=== PATIENT | male | born 1995 | race Caucasian/White ===

== ENCOUNTER 2018-07-05 08:29 | Emergency (ER) | payer OTHER, MEDICAID ==
[~2018-07-05] VITALS: Ht 177.8 cm; Wt 99.8 kg
[~2018-07-05 08:29] MED LIST: AMBIEN 5 MG TABL5 M1 PO; CLONAZEPAM 1 MG1 M1 PO; SEROQUEL 50 MG50 MG PO
[2018-07-05] MEDS ORDERED: EPIPEN 2-P0.3 MG/0.3 IM (08:41)
[2018-07-05] MEDS ORDERED: DIPHENHIST50 MG PO (08:41)
[2018-07-05] MEDS ORDERED: PREDNISONE50 MG PO (08:41)
[2018-07-05 10:42] VITALS: BP 144/87
== END 2018-07-05 10:43 | disposition home or self-care (01) ==
LOC: M.ERS 08:29
DX: T78.49XA Other allergy, initial encounter (principal); Z88.2 Allergy status to sulfonamides; Z88.7 Allergy status to serum and vaccine; X58.XXXA Exposure to other specified factors, initial encounter

== ENCOUNTER 2018-12-05 16:00 | Emergency (ER) | payer OTHER, MEDICAID ==
[~2018-12-05] VITALS: Ht 188 cm; Wt 149.7 kg
[~2018-12-05 16:00] MED LIST changes: +DIPHENHIST50 MG PO; +EPIPEN 2-P0.3 MG/0.3 IM; +PREDNISONE50 MG PO
[2018-12-05] MEDS ORDERED: SUBOXONE 2 MG-1 EAC1 PO (16:13)
[2018-12-05 16:40] VITALS: BP 149/97
== END 2018-12-05 16:51 | disposition home or self-care (01) ==
LOC: M.ERS 16:00
DX: S61.411A Laceration without foreign body of right hand, initial encounter (principal); Z88.0 Allergy status to penicillin; Z88.2 Allergy status to sulfonamides; Z88.1 Allergy status to other antibiotic agents; Z88.7 Allergy status to serum and vaccine; X58.XXXA Exposure to other specified factors, initial encounter; Y93.89 Activity, other specified; Y92.89 Other specified places as the place of occurrence of the external cause; Y99.8 Other external cause status

== ENCOUNTER 2020-09-03 22:56 | Emergency (ER) | payer OTHER, MEDICAID ==
[~2020-09-03] VITALS: Ht 185.4 cm; Wt 127.0 kg
[~2020-09-03 22:56] MED LIST changes: +ADDERALL 20 MG20 MG PO; +SUBOXONE 2 MG-1 EAC1 PO; +VYVANSE20 MG PO
[2020-09-03 23:06] VITALS: BP 140/89
[2020-09-04] MEDS ORDERED: AZITHROMYCIN 2250 MG PO (00:11)
[2020-09-05] MEDS ORDERED: DOXYCYCLINE 10100 MG PO (03:40)
[2020-09-05] MEDS ORDERED: TRAMADOL 50 MG50 MG PO (03:40)
== END 2020-09-04 00:18 | disposition home or self-care (01) ==
LOC: M.ERS 22:56
DX: L03.114 Cellulitis of left upper limb (principal); Z88.1 Allergy status to other antibiotic agents; Z88.0 Allergy status to penicillin; Z88.7 Allergy status to serum and vaccine; Z88.2 Allergy status to sulfonamides

== ENCOUNTER 2020-09-05 02:49 | Emergency (ER) | payer OTHER, MEDICAID ==
[~2020-09-05] VITALS: Ht 185.4 cm; Wt 127.0 kg
[~2020-09-05 02:49] MED LIST changes: +AZITHROMYCIN 2250 MG PO
[2020-09-05] MEDS ORDERED: TRAMADOL 50 MG50 MG PO (03:40)
[2020-09-05] MEDS ORDERED: DOXYCYCLINE 10100 MG PO (03:40)
[2020-09-05 04:17] VITALS: BP 125/70
== END 2020-09-05 04:18 | disposition home or self-care (01) ==
LOC: M.ERS 02:49
DX: L02.512 Cutaneous abscess of left hand (principal); Z88.1 Allergy status to other antibiotic agents; Z88.0 Allergy status to penicillin; Z88.2 Allergy status to sulfonamides; Z88.7 Allergy status to serum and vaccine

== ENCOUNTER 2021-01-22 00:10 | Emergency (ER) | payer OTHER, MEDICAID ==
[~2021-01-22] VITALS: Ht 185.4 cm; Wt 141.6 kg
[~2021-01-22 00:10] MED LIST changes: +DOXYCYCLINE 10100 MG PO; +TRAMADOL 50 MG50 MG PO
[2021-01-22] MEDS ORDERED: CLONAZEPAM2 MG PO (00:21)
[2021-01-22] MEDS ORDERED: NEURONTIN 300M300 M2 PO (01:11)
[2021-01-22] MEDS ORDERED: MELOXICAM7.5 MG PO (01:11)
[2021-01-22 02:11] VITALS: BP 130/85
== END 2021-01-22 02:11 | disposition home or self-care (01) ==
LOC: M.ERS 00:10
DX: T40.2X1A Poisoning by other opioids, accidental (unintentional), initial encounter (principal); Y92.89 Other specified places as the place of occurrence of the external cause; Z88.1 Allergy status to other antibiotic agents; Z88.2 Allergy status to sulfonamides; Z88.0 Allergy status to penicillin

== ENCOUNTER 2021-02-14 13:33 | Emergency (ER) | payer OTHER, MEDICAID ==
[~2021-02-14] VITALS: Ht 185.4 cm; Wt 122.5 kg
[~2021-02-14 13:33] MED LIST changes: +CLONAZEPAM2 MG PO; +MELOXICAM7.5 MG PO; +NEURONTIN 300M300 M2 PO
[2021-02-14] MEDS ORDERED: CLONAZEPAM 0.50.5 M1 PO (13:55)
[2021-02-14] MEDS ORDERED: NORCO5 PO ×2 (15:01→15:23)
[2021-02-14 15:25] VITALS: BP 151/109
== END 2021-02-14 15:25 | disposition home or self-care (01) ==
LOC: M.ERS 13:33
DX: S69.82XA Other specified injuries of left wrist, hand and finger(s), initial encounter (principal); Z88.1 Allergy status to other antibiotic agents; Z88.0 Allergy status to penicillin; Z88.2 Allergy status to sulfonamides; Z88.7 Allergy status to serum and vaccine; X50.9XXA Other and unspecified overexertion or strenuous movements or postures, initial encounter; Y93.89 Activity, other specified; Y92.89 Other specified places as the place of occurrence of the external cause; Y99.8 Other external cause status

== ENCOUNTER 2021-03-04 07:11 | Emergency (ER) | payer OTHER, MEDICAID ==
[~2021-03-04] VITALS: Ht 185.4 cm; Wt 136.1 kg
[~2021-03-04 07:11] MED LIST changes: +CLONAZEPAM 0.50.5 M1 PO; +NORCO5 PO
[2021-03-04 07:34] LABS: ABSOLUTE EOSINOPHILS 0.1 thou/uL (0.0-0.7); ABSOLUTE MONOCYTES 0.5 thou/uL (0.0-1.2); ABSOLUTE NEUTROPHILS 3.6 thou/uL (1.6-8.1); BASOPHILS 0.4 %; EOSINOPHILS 1.5 %; HEMATOCRIT 43.9 % (42.0-52.0); LYMPHOCYTES 41.4 %; MCH 30.2 pg (26.0-34.0); MCHC 34.1 g/dL (28.0-37.0); MCV 88.7 fL (80.0-100.0); MONOCYTES 7.4 %; MPV 6.8 fl. (7.2-11.1); NUCLEATED RBCS 0 /100WBC; PLATELET COUNT* 236 thou/uL (150-400); POLYS 49.3 %; RBC 4.95 mil/uL (4.50-6.00); RDW-CV 12.8 % (10.5-14.5); WBC 7.3 thou/uL (4.0-11.0)
[2021-03-04 07:44] LABS: CALCIUM 8.6 mg/dL (8.5-10.1); CREATININE 1.2 mg/dL (0.6-1.3); POTASSIUM 3.7 mmol/L (3.5-5.1)
[2021-03-04 07:49] LABS: TOTAL BILIRUBIN 0.5 mg/dL (<0.1-1.0); TOTAL PROTEIN 7.1 g/dL (6.4-8.2)
[2021-03-04 08:06] LABS: URINE BILIRUBIN NEGATIVE (Negative); URINE BLOOD NEGATIVE (Negative); URINE CLARITY CLEAR; URINE COLOR YELLOW; URINE GLUCOSE-RANDOM NEGATIVE (Negative); URINE KETONES NEGATIVE (Negative); URINE LEUKOCYTES-REFLEX NEGATIVE (Negative); URINE NITRITE-REFLEX NEGATIVE (Negative); URINE PROTEIN 1+ (Negative); URINE SPECIFIC GRAVITY >= 1.030 (1.005-1.030); URINE UROBILINOGEN 0.2 E.U./dl (0.2-1.0)
[2021-03-04 08:11] LABS: AMP/METHAMP POSITIVE (Negative); BARBITURATES Negative (Negative); BENZODIAZEPINES Negative (Negative); COCAINE Negative (Negative); METHADONE Negative (Negative); OPIATES Negative (Negative); PCP Negative (Negative); THC POSITIVE (Negative)
[2021-03-04 08:33] LABS: BACTERIA-REFLEX 1-9 Few /HPF (None Seen); CRYSTALS None Seen /LPF (None Seen); HYALINE CASTS 0-3 Few /LPF (None Seen); SQUAMOUS 0-3 Few /LPF (0-3); URINE RBC 0-2 Rare /HPF (0-2); URINE WBC-REFLEX 0-5 Rare /HPF (0-5)
[2021-03-04 11:08] VITALS: BP 131/85
--- NOTE | 2021-03-04 15:03 | EKG ---
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1995 Requested By: Dmitri Hernandez Order Number: [id number] MD: Lio Chappell Measurements Intervals [place] Rate: 105 P: 68 MD: 158 QRS: 56 QRSD: 112 T: 48 QT: 375 QTc: 496 Interpretive Statements Sinus tachycardia Borderline intraventricular conduction delay Prolonged QT interval Baseline wander in lead(s) V2 Compared to ECG 08/03/2020 01:54:51 Prolonged QT interval now present Sinus rhythm no longer present Electronically Signed On 03-04-2021 15:02:58 CDT by Lio Chappell [email or web address] <ELECTRONICALLY SIGNED> By: Lio Chappell MD, [facility] 03/04/21 1502 0729 0729 Lio Chappell MD, [facility] /EPI
--- NOTE | 2021-03-04 15:17 | EKG ---
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1995 Requested By: Dmitri Hernandez Order Number: [id number] MD: Lio Chappell Measurements Intervals [place] Rate: 93 P: 70 OK: 168 QRS: 58 QRSD: 107 T: 45 QT: 361 QTc: 449 Interpretive Statements Sinus rhythm Compared to ECG 03/04/2021 07:29:40 Sinus tachycardia no longer present Electronically Signed On 03-04-2021 15:17:27 CDT by Lio Chappell [email or web address] <ELECTRONICALLY SIGNED> By: Lio Chappell MD, [facility] 03/04/21 1517 0848 0848 Lio Chappell MD, [facility] /EPI
== END 2021-03-04 11:10 | disposition home or self-care (01) ==
LOC: M.ERS 07:11
PROVIDERS: Emergency Medicine Emergency Medical Services
DX: S06.0X0A Concussion without loss of consciousness, initial encounter (principal); F43.10 Post-traumatic stress disorder, unspecified; F90.9 Attention-deficit hyperactivity disorder, unspecified type; F41.9 Anxiety disorder, unspecified; Z88.1 Allergy status to other antibiotic agents; Z88.0 Allergy status to penicillin; Z88.2 Allergy status to sulfonamides; Z79.899 Other long term (current) drug therapy; V49.88XA Car occupant (driver) (passenger) injured in other specified transport accidents, initial encounter; Y93.89 Activity, other specified; Y92.413 State road as the place of occurrence of the external cause; Y99.9 Unspecified external cause status